=== PATIENT | male | born 1980 | race Caucasian/White ===

== ENCOUNTER 2024-07-20 05:41 | Emergency (ER) | payer OTHER, SELFPAY ==
[2024-07-20 05:47] VITALS: BP 136/96
--- NOTE | 2024-07-20 07:16 | ED.GENMED ---
History of Present Illness
General
Chief Complaint: Musculo-Skeletal Complaint
Time Seen by Provider: 07/20/24 07:15
History of Present Illness
History of Present Illness:
TIME OF INITIAL ENCOUNTER: 7:15 AM
HPI: The patient woke up 3 mornings ago with moderate upper neck/posterior head pain. He initially thought that maybe he slept wrong. He went to urgent care the following day as the symptoms worsened and was placed on Flexeril and a Medrol
Dosepak. Despite this, his symptoms persist. He states he cannot take NSAIDs because he gets a severe rash when he takes those. He has not been on any narcotics. The pain is described as a pulsatile type of sensation in the posterior inferior
occipital region of the head that radiates down the musculature of the neck.
EXAM:
GENERAL: Well appearing but appears uncomfortable
NECK: There is no midline C-spine tenderness, there is markedly decreased active range of motion of the cervical spine due to pain
NEUROLOGIC: Excellent strength all extremities, no coordination deficits
PSYCHIATRIC: Appropriate mental status, normal insight and judgement
EXTREMITIES: Nontender, no edema, moves all extremities equally
SKIN: No rash, no lesions
NUMBER AND COMPLEXITY OF PROBLEMS ADDRESSED AT THE ENCOUNTER
� Chronic conditions affecting care: No significant past medical history, has had rotator cuff surgery
� Acute Exacerbation and/or Progression of Chronic Illness: This is an acute problem
� Differential Diagnosis includes: Paracervical spinal musculature spasm, tension headache
AMOUNT AND/OR COMPLEXITY OF DATA TO BE REVIEWED AND ANALYZED
� I performed an independent evaluation of and my interpretation is:
EKG:
CT: CT imaging personally reviewed, no acute abnormality however the radiologist did also note low-lying cerebellar tonsils
X-rays:
Laboratory Studies:
Other:
� Review of other/old records: No old records available for review in [facility]
� Clinical information was obtained by an independent historian: None needed
� Prescriptions/Medications Considered but not given:
� Further testing considered but not performed:
RISK OF COMPLICATIONS AND/OR MORBIDITY OR MORTALITY OF PATIENT MANAGEMENT
� Social determinants of health affecting care: Lives at home
� Discussion with other providers: Given the low-lying cerebellar tonsils, I did communicate with Dr. Ramachandran who feels this is normal and not contributing to his symptoms and no need for neurosurgical follow-up
� Escalation of care including admission/observation vs risk of discharge considered: The patient cannot take NSAIDs, has been on Flexeril and steroid taper without improvement. Will add narcotic analgesia. The patient has a
nonfocal neurologic examination but describes rather severe pain in the back of the head to the point that he came in by ambulance. CT imaging obtained.
ANY OTHER UPDATES:
10 AM: The patient initially described '15 out of 10 pain' that went down to a 1 out of 10 and now is starting to get worse again however he overall appears more comfortable prior to discharge. He will continue the Medrol Dosepak and I will give
short Percocet to help with pain.
Phy Exam
Physical Exam
Physical Exam:
See HPI
Course
Orders/Labs/Results
Orders:
Orders
07/20/24 07:24
CT Head W/o Iv Contrast Urgent
Comment:
Reason For Exam: severe posterior / inferior head pain
Oxycodone/Acetaminophen [Percocet 5/325] 2 tablet PO NOW STA
07/20/24 07:25
Ondansetron Orally Disint [Zofran Odt (Orally Disintegrating)] 4 mg PO NOW STA
Vital Signs
Initial and Last Documented VS:
Initial Vital Signs
Temp Pulse Resp BP Pulse Ox
36.9 C 74 20 136/96 100
07/20/24 05:47 07/20/24 05:47 07/20/24 05:47 07/20/24 05:47 07/20/24 05:47
Last Documented Vital Signs
Temp Pulse Resp BP Pulse Ox
36.9 C 74 20 136/96 100
07/20/24 05:47 07/20/24 05:47 07/20/24 05:47 07/20/24 05:47 07/20/24 05:47
*Critical Care Note
Total Time (30-74mins, 75-104mins- exclusive of procedures): Not Applicable
ED Attending Note
-
Portions of this chart may have been created with voice recognition software.� Occasional wrong word or��sound alike� substitutions may have occurred due to the inherent limitations of voice recognition software.
Discharge Plan
Departure
Patient Disposition: Home (Routine Discharge)
Date of Disposition: 07/20/24
Time of Disposition: 10:04
Patient with high blood pressure during this ER visit?: Yes
Discharge Problem:
Cervical paraspinous muscle spasm
Instructions: Muscle Strain (DC), BLOOD PRESSURE
Prescriptions:
New
oxycodone-acetaminophen [Percocet] 5-325 mg tablet
1 - 2 tab PO Q6HPRN PRN (Reason: pain) Qty: 14 0RF
Referrals:
NONE,* [Family Provider, Internal Medicine]
Activity Restrictions/Additional Instructions:
The CAT scan of the brain shows no acute abnormality. There is no bleeding in your brain. The radiologist noted 'low-lying cerebellar tonsils' and I confirmed with the on-call neurosurgeon, Dr. Ramachandran who indicates that this is of no
significance and can be normal. This would have nothing to do with your pain. I suspect your pain is still related to a musculoskeletal etiology/spasm of the paraspinal musculature of the upper cervical spine. Continue the Medrol Dosepak. Do not
take Flexeril at the same time take Percocet. If you take Percocet, take some like MiraLAX to prevent constipation.
Interventions
Interventions:
*Risk Screen - Suicide Last Done: 07/20/24 05:47
*General Assessment Last Done: 07/20/24 07:54
*Neglect/Abuse Screening Last Done: 07/20/24 05:47
*ED- Fall Risk Assessment Last Done: 07/20/24 07:54
ED-Musculoskeletal Assessment Last Done: 07/20/24 07:53
Discharge Date and Time
Print Language: [id number]
[2024-07-20] MEDS: PERCOCET 5/325 2 TABLET PO (07:36)
[2024-07-20] MEDS: ZOFRAN ODT (ORALLY DISINTEGRATING) 4 MG PO (07:36)
== END 2024-07-20 10:31 | disposition home or self-care (01) ==
LOC: EMR 05:41
PROVIDERS: EMERGENCY PHYSICIAN Emergency Medicine
DX: M62.830 Muscle spasm of back (principal); R51.9 Headache, unspecified
CPT/HCPCS: 99284; 70450